=== PATIENT | male | born 1965 | race Caucasian/White ===

== ENCOUNTER → 2023-11-04 13:22 | Outpatient (REF) | payer BC, SELFPAY | LOC: HWRAD 13:22 | PROVIDERS: ATTENDING PHYSICIAN Registered Nurse | DX: R82.90 Unspecified abnormal findings in urine (principal); R31.29 Other microscopic hematuria | CPT/HCPCS: 74178; Q9967 ==

== ENCOUNTER 2023-12-23 06:48 | Day surgery (SDC) | payer OTHER, SELFPAY ==
[2023-12-22 13:59] VITALS: BMI 31.3
[2023-12-23] VITALS (10 sets, daily range): BP systolic 128–147; BP diastolic 68–91; BMI 31.3
[2023-12-23] MEDS: CYSVIEW KIT 100 MG INTRAVES (14:43)
[2023-12-23] MEDS: TYLENOL 1000 MG PO (14:49)
--- NOTE | 2023-12-23 15:41 | W.SUR.PREOP ---
Pre-Operative Surgical Note
-
I have examined this patient prior to the performance of the scheduled procedure.
The patient's condition is unchanged from the time of the current History and
Physical and the patient is able to undergo the scheduled procedure.
Surgical consent signed on chart.
Preop checklist completed on chart.
Cysview instilled intravesically in SDS.
To OR for Cysview + blue light TURBT + intravesical gemcitabine.
D/w patient and spouse in SDS.
[2023-12-23] MEDS: SYRINGE NON-PUMP 50 ML IRRIG (18:17)
[2023-12-23] MEDS: SYRINGE NON-PUMP 50 MG IRRIG (18:17)
[2023-12-23] MEDS: DETROL LA 4 MG PO (18:36)
[2023-12-23] MEDS: Pyridium 200 MG PO (18:37)
== END 2023-12-23 19:24 | disposition home or self-care (01) ==
LOC: SDS 06:48
PROVIDERS: ATTENDING PHYSICIAN Surgery; FAMILY PHYSICIAN Registered Nurse
DX: C67.2 Malignant neoplasm of lateral wall of bladder (principal)
CPT/HCPCS: 52240; C9738; 88307; 36415; 93005; A9589